=== PATIENT | female | born 1950 | race Caucasian/White ===

== ENCOUNTER 2017-04-07 08:55 | Emergency (ER) | payer MEDICARE ==
[2017-04-07 09:58] LABS: #Basophils 0.1 thou/uL (0.0-0.2); #Eosinphils 0.1 thou/uL (0.0-0.7); #Lymphocytes 2.5 thou/uL (1.20-3.40); #Monocytes 1.2 thou/uL (0.11-0.59); #Neutrophils 12.3 thou/uL (1.40-6.50); %Basophils 0.8 % (0.0-1.0); %Eosinophils 0.6 % (0.0-10.0); %Lymphocytes 15.6 % (21.0-51.0); %Monocytes 7.1 % (0.0-10.0); %Neutrophils 75.9 % (42.0-75.0); Hemoglobin 14.2 g/dL (12.0-16.0); Mean Corpuscular HGB CONC 33.4 g/dL (32.0-36.0); Mean Corpuscular Hemoglobin 31.6 pg (27.0-31.0); Mean Corpuscular Volume 94.6 fl (81.0-99.0); Mean Platelet Volume 5.1 fL (7.4-10.4); Platelet Count 532 thou/uL (130-400); RBC Distribution Width 12.1 % (11.5-14.5); White Blood Cell (WBC) Count 16.2 thou/uL (4.8-10.8)
[2017-04-07] MEDS ORDERED: Ondansetron HCl/PF 4 MG/2 ML Vial ONE (10:02)
[2017-04-07 10:13] LABS: ALT (SGPT) 12 U/L (8-55); AST (SGOT) 18 U/L (5-34); Albumin 3.5 g/dL (3.4-4.8); Alkaline Phosphatase 118 U/L (40-150); Anion Gap 20 mmol/L (10-20); BUN (Urea Nitrogen) 8 mg/dL (9.8-20.1); Bilirubin, Total Less than 0.3 mg/dL (0.2-1.2); Calc. Creatinine Clearance 0 mL/min (70-130); Calcium 9.8 mg/dL (7.8-10.44); Carbon Dioxide 22 mmol/L (23-31); Chloride 96 mmol/L (98-107); Estimated GFR-MDRD Greater than 90; Globulin 3.5 g/dL (2.4-3.5); Glucose 87 mg/dL (80-115); Lipase 11 U/L (8-78); Potassium 3.8 mmol/L (3.5-5.1); Sodium 134 mmol/L (136-145)
[2017-04-07 10:19] LABS: Bacteria/HPF Rare-Few HPF (None Seen); Bilirubin Negative (Negative); Blood, Urine Trace (Negative); Clarity Clear (Clear); Glucose, Urine (Dipstick) Negative (Negative); Leukocyte Negative (Negative); Nitrite Negative (Negative); Protein, Urine (Dipstick) Negative (Neg-Trace); Renal Epithelial 0-3 HPF (0-3); Squamous Epithelial 0-3 HPF (0-3); Transitional Epithelial 0-3 HPF (0-3); Urobilinogen 0.2 mg/dL (0.2-1.0)
[2017-04-07] MEDS ORDERED: Piperacillin/Tazobactam 3.375 GM VIAL ONE (10:27)
[2017-04-07] MEDS ORDERED: Sodium Chloride 0.9% 100 ML BAG ONE (10:29)
[2017-04-07] MEDS ORDERED: Sodium Chloride 0.9% 1,000 ML BAG ONE (10:29)
[2017-04-07] MEDS ORDERED: Iopamidol 370 76% 100 ML VIAL ONE (10:55)
--- NOTE | 2017-04-07 13:29 | CT ---
CT OF THE ABDOMEN AND PELVIS WITH CONTRAST: Date: 04/07/17 COMPARISON: None. HISTORY: Constipation and abdominal pain. Fecal matter leaking from the anus and vagina. TECHNIQUE: Multiple contiguous axial images were obtained in a CT of the abdomen and pelvis with contrast. PO c ontrast was administered. Coronal reformats were performed. FINDINGS: There is thickening of the wall of the sigmoid colon. Enteric contrast is seen within the small ana luisa l and extends all the way down to the level of the rectum. The uterus is not definitely seen, but in its place, there is an air and fluid collection containing enteric contrast measuring 4.1 x 1.7 x 2 .1 cm in size. 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 No free air is identified. The liver, gallbladder, kidneys, adrenal glands, spleen, and pancreas are unremarkable. No abdominal adenopathy is seen. Atherosclerotic calcifications are seen in the aorta. Degenerative changes are seen in the spine. The visualized inferior thorax and abdominal wall soft t issues are unremarkable. IMPRESSION: Patient appears to have a leak in the region of the sigmoid colon. This may be secondary to divertic ulitis. 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 POS: RENAE
== END 2017-04-07 13:20 | disposition short-term general hospital (02) ==
LOC: MADERS 08:55
DX: K63.0 Abscess of intestine (principal); N82.8 Other female genital tract fistulae; F17.210 Nicotine dependence, cigarettes, uncomplicated
CPT/HCPCS: 36415; 51701; 74177; 80053; 81003; 81015; 83605; 83690; 85025; 93005; 96361; 96365; 96375; A4353; J2405; J2543; J7050

== ENCOUNTER 2022-07-27 09:47 | Emergency (ER) | payer MEDICARE ==
[2022-07-27] MEDS ORDERED: Sulfameth/Trimethoprim DS 800-160mg TAB ONE (10:52)
[2022-07-27] MEDS ORDERED: Cephalexin 500 MG CAP ONE (10:52)
[2022-07-27] MEDS ORDERED: Bacitracin 1 PK ONE (10:52)
== END 2022-07-27 11:18 | disposition home or self-care (01) ==
LOC: MADERS 09:47
DX: S92.321A Displaced fracture of second metatarsal bone, right foot, initial encounter for closed fracture (principal); S92.331A Displaced fracture of third metatarsal bone, right foot, initial encounter for closed fracture; L03.115 Cellulitis of right lower limb; I10 Essential (primary) hypertension; E78.00 Pure hypercholesterolemia, unspecified; M19.90 Unspecified osteoarthritis, unspecified site; F17.210 Nicotine dependence, cigarettes, uncomplicated; X50.1XXA Overexertion from prolonged static or awkward postures, initial encounter; Y92.009 Unspecified place in unspecified non-institutional (private) residence as the place of occurrence of the external cause; Z79.899 Other long term (current) drug therapy